=== PATIENT | female | born 1985 ===

== ENCOUNTER 2017-08-20 08:52 | Emergency (ER) | payer OTHER ==
[2017-08-20 08:56] VITALS: RESP 16
[2017-08-20] MEDS ORDERED: Lidocaine 5% Patch TD STA (09:28)
--- NOTE | 2017-08-20 09:30 | C.PDOC ---
History Of Present Illness 31 year old female presents to the ED for evaluation of lower back pain which began 4 days ago. Patient denies trauma and states symptoms are worse with movement. Patient denies other associated symptoms. LOWER BACK PAIN X 4 DAYS. NO TRAUMA. WORSE W MOVEMENT. DENIES OTHER ASSOC SX EXAM MILD DIST NONTOXIC BACK +L LOWER SPASM W LOCAL TEND REPRODUC PAIN. LIMITED FULL FLEX. NEURO INTACT REMAINDER NEG Time Seen by Provider: 08/20/17 09:28 Chief Complaint (Nursing): Back Pain History Per: Patient History/Exam Limitations: no limitations Onset/Duration Of Symptoms: Days (4) Current Symptoms Are (Timing): Still Present Quality Of Discomfort: "Pain" Previous Symptoms: Back Pain (lower ) Associated Symptoms: denies: Incontinence, New Weakness, New Numbness Additional History Per: Patient Past Medical History Reviewed: Historical Data, Nursing Documentation, Vital Signs Vital Signs: Last Vital Signs Temp 97.2 F L 08/20/17 09:54 Pulse 65 08/20/17 09:54 Resp 16 08/20/17 09:54 BP 110/70 08/20/17 09:54 Pulse Ox 99 08/20/17 11:28 - Medical History PMH: No Chronic Diseases Surgical History: No Surg Hx Family History: States: Unknown Family Hx - Social History Hx Alcohol Use: No Hx Substance Use: No - Immunization History Hx Tetanus Toxoid Vaccination: No Hx Influenza Vaccination: No Hx Pneumococcal Vaccination: No Review Of Systems Musculoskeletal: Positive for: Back Pain (lower ) Physical Exam - Physical Exam Appears: Non-toxic, No Acute Distress, Other (mild distress ) Skin: Normal Color, Warm, Dry Oral Mucosa: Moist Neck: Supple Back: Other (left lower spasm with localized tenderness and reproducible pain. limited full flexion) Extremity: Normal ROM, Capillary Refill (less than 2 seconds ) Neurological/Psych: Oriented x3, Normal Speech, Normal Cognition Gait: Steady ED Course And Treatment - Laboratory Results Lab Interpretation: Normal Urine POC: Positive O2 Sat by Pulse Oximetry: 99 (on RA ) Pulse Ox Interpretation: Normal Progress Note: UA ordered and reviewed. Lidoderm TD and Tylenol PO administered. Disposition Counseled Patient/Family Regarding: Studies Performed, Diagnosis, Need For Followup, Rx Given - Disposition Referrals: [facility] [Outside] [facility] [Outside] Disposition: HOME/ ROUTINE Disposition Time: 09:41 Condition: IMPROVED Additional Instructions: APLICA PARCHE AL JAYNE AFECTADA. MAX 3 PARCHES A LA VEZ. RETIRE EL PATCH 12 HORAS DESPUS DE LA APLICACIN INICIAL. ALTERNATIVAS 12 HORAS ACTIVADAS, 12 HORAS DESACTIVADAS. Prescriptions: Acetaminophen [Tylenol 325mg tab] 650 mg PO Q6 #30 tab Lidocaine 5% [Lidoderm] 1 ea TD PRN PRN #10 patch PRN Reason: Pain, Moderate (4-7) Instructions: (ED), Acute Low Back Pain (ED) Forms: [employer] (Lithuanian), Work Excuse Print Language: WELSH - Clinical Impression Clinical Impression: Low back pain, - Scribe Statement The provider has reviewed the documentation as recorded by the Scribe (Lindsay Leblanc) Provider Attestation: All medical record entries made by the Scribe were at my direction and personally dictated by me. I have reviewed the chart and agree that the record accurately reflects my personal performance of the history, physical exam, medical decision making, and the department course for this patient. I have also personally directed, reviewed, and agree with the discharge instructions and disposition.
[2017-08-20] MEDS ORDERED: Lidocaine 5% Patch TD ONE (09:33)
[2017-08-20 09:34] LABS: RBC URINE 1 /hpf (0-3); URINE BACTERIA RARE (<OCC); URINE BILIRUBIN NEGATIVE (NEGATIVE); URINE BLOOD NEGATIVE (NEGATIVE); URINE COLOR Yellow (YELLOW); URINE GLUCOSE (UA) NORMAL (Normal); URINE KETONE NEGATIVE (NEGATIVE); URINE LEUKOCYTE ESTERASE NEG Leu/uL (Negative); URINE PROTEIN NEGATIVE (NEGATIVE); URINE UROBILINOGEN NORMAL mg/dL (0.2-1.0); WBC URINE 2 /hpf (0-5)
[2017-08-20 09:54] VITALS: BP 110/70; PULSE 65; TEMP 97.2
[2017-08-20 11:10] VITALS: O2SAT 99
== END 2017-08-20 09:51 | disposition home or self-care (01) ==
LOC: C.ER 08:52
DX: O26.899 Other specified pregnancy related conditions, unspecified trimester (principal); M54.5 Low back pain; Z3A.00 Weeks of gestation of pregnancy not specified